=== PATIENT | female | born 1970 | race Caucasian/White ===

== ENCOUNTER → 2017-01-25 | Outpatient (CLI) | payer BC ==
--- NOTE | ~2017-01-25 | CR63 ---
[facility]. [facility] A Service of [facility] & [facility] RADIOLOGY TEXT RESULTS PATIENT: BELKYS LOCKHART LOCATION: [facility] : 72 UNIT #: [id number] AGE: [address]: Tiana Ness MD SEX: F ORDER DR: [id number] [facility] [address] [place], [place] [address] [id number] O MR#: [id number] Acc #: [id number] NAME: BELKYS LOCKHART : 1970 SEX: F STUDY DATE/TIME: 01/25/2017 15:18 UNIT: [facility] ROOM: STUDY DESCRIPTION: CR Chest 2 View Attending Physician: Tiana Ness M.D. Ordering Physician: Tiana Ness M.D. MEDICAL IMAGING REPORT This report is preliminary unless electronic signature is present EXAM PA and lateral chest radiograph dated 01/25/2015. COMPARISON STUDIES Comparison study of 06/02/2015 HISTORY Chest tightness, cough for 3 months FINDINGS PA and lateral views of the chest are obtained. They are directly compared to the last exam. Cardiac size in the patient remains normal. Vascular pattern is normal and the lungs are clear. CONCLUSION Negative chest. No active disease. Dictated by... Raffy Fajardo M.D. THIS IS AN ELECTRONICALLY VERIFIED REPORT Raffy Fajardo M.D. at 01/29/2017 2:45 PM EASTON/ny TD: 01/25/2017 18:14 JOB #: [id number] MEDICAL IMAGING REPORT Page 1 of 1 COPY
== END | disposition home or self-care (01) ==
LOC: CRAD 14:49
DX: R05 Cough (principal)
CPT/HCPCS: 71020

== ENCOUNTER → 2017-05-17 | Outpatient (CLI) | payer BC ==
--- NOTE | ~2017-05-17 | CR63 ---
[facility] A Service of [facility] & [facility] RADIOLOGY TEXT RESULTS PATIENT: BELKYS LOCKHART LOCATION: [facility] : 72 UNIT #: [id number] AGE: [address]: Tiana Ness MD SEX: F ORDER DR: [id number] [facility] [address] [place], [place] [address] [id number] O MR#: [id number] Acc #: [id number] NAME: BELKYS LOCKHART : 1970 SEX: F STUDY DATE/TIME: 05/17/2017 14:53 UNIT: [facility] ROOM: STUDY DESCRIPTION: CR Chest 2 View Attending Physician: Tiana Ness M.D. Referring Physician: Tiana Ness M.D. Ordering Physician: Tiana Ness M.D. Primary Care Physician: Tiana Ness M.D. MEDICAL IMAGING REPORT This report is preliminary unless electronic signature is present EXAM Chest PA and lateral, 05/17/2017 HISTORY Right side chest and rib pain for 2 weeks with no known injury. FINDINGS PA and lateral examination of the chest upright shows a good expansion of the parenchyma with a normal distribution of the pulmonary vascularity. There is no indication of congestion, effusion, infiltrate, tumor, or nodular density. The pleural reflections and diaphragmatic contours are normal. The cardiac silhouette and mediastinal anatomy is within normal limits. IMPRESSION Normal chest. Dictated by... Lauro Gomes M.D. THIS IS AN ELECTRONICALLY VERIFIED REPORT Lauro Gomes M.D. at 05/18/2017 7:21 AM MODESTA/ro TD: 05/17/2017 22:52 JOB #: [id number] MEDICAL IMAGING REPORT Page 1 of 1 COPY
--- NOTE | ~2017-05-17 | CR213 ---
[facility] A Service of [facility] & [facility] RADIOLOGY TEXT RESULTS PATIENT: BELKYS LOCKHART LOCATION: [facility] : 72 UNIT #: [id number] AGE: [address]: Tiana Ness MD SEX: F ORDER DR: [id number] [facility] [address] [place], [place] [address] [id number] O MR#: [id number] Acc #: [id number] NAME: BELKYS LOCKHART : 1970 SEX: F STUDY DATE/TIME: 05/17/2017 14:53 UNIT: [facility] ROOM: STUDY DESCRIPTION: CR Ribs Unilateral 2 View Rt Attending Physician: Tiana Ness M.D. Referring Physician: Tiana Ness M.D. Ordering Physician: Tiana Ness M.D. Primary Care Physician: Tiana Ness M.D. MEDICAL IMAGING REPORT This report is preliminary unless electronic signature is present EXAM Right ribs, 4 views, 05/17/2017. HISTORY Right side rib pain for 2 weeks with no known injury. FINDINGS Four views of the right ribs demonstrate no fracture. The bones are normally mineralized. There is no pneumothorax. IMPRESSION Negative right ribs. Dictated by... Lauro Gomes M.D. THIS IS AN ELECTRONICALLY VERIFIED REPORT Lauro Gomes M.D. at 05/18/2017 7:21 AM MODESTA/michel TD: 05/17/2017 22:56 JOB #: [id number] MEDICAL IMAGING REPORT Page 1 of 1 COPY
== END | disposition home or self-care (01) ==
LOC: CRAD 14:39
DX: R07.81 Pleurodynia (principal)
CPT/HCPCS: 71020; 71100